=== PATIENT | female | born 1980 | race Caucasian/White ===

== ENCOUNTER 2023-04-26 08:29 | Outpatient (CLI) | payer OTHER, SELFPAY ==
--- NOTE | 2023-04-26 09:00 | CRLHL7_ITS ---
For Patients: As a result of the Century Cures Act, medical imaging exams and procedure reports are released immediately into your electronic medical record. You may view this report before your referring provider. If you have questions, please contact your health care provider. INDICATION: Salivary gland pain. COMPARISON: None. TECHNIQUE: CT soft tissue neck with IV contrast. Isovue 370, 95 cc. FINDINGS: Mild asymmetric enlargement of the right submandibular gland compared to the left (best appreciated on series 5, image 48). Associated subtle enhancement. No intraparotid mass. No intraglandular ductal dilatation. Normal accessory right parotid gland tissue adjacent to the master muscle. No obstructing sialolith. The left parotid gland. Normal bilateral submandibular glands. Normal thyroid gland. No enlarged cervical lymph nodes bilaterally. No supraclavicular superior mediastinal adenopathy. Nasopharynx and oropharynx are clear. No inflammation within the parapharyngeal fat pads or retropharyngeal space. Normal thickness of the epiglottis. Normal glottis with symmetric vocal cords. Lung apices are clear. Normal alignment the cervical spine. No prevertebral soft tissue swelling. Visualized paranasal sinuses and mastoid air cells are clear. IMPRESSION: 1. Mild asymmetric enlargement of the right submandibular gland compared to the left. Associated subtle enhancement. Overall, findings may represent early or mild changes of parotiditis. No intra parotid mass. No obstructing sialolith 2. No adenopathy. 3. Normal deep soft tissues of the neck. 4. No prevertebral soft tissue swelling Please note that all CT scans at this facility use dose modulation, iterative reconstruction, and/or weight-based dosing when appropriate to reduce radiation dose to as low as reasonably achievable. Dictated by Kamari Alejandra MD @ 04/26/2023 3:43:32 PM (Electronically Signed)
== END 2023-04-26 08:30 | disposition home or self-care (01) ==
PROVIDERS: PCP Physician Assistant Medical; Visit Provider Otolaryngology
DX: K11.8 Other diseases of salivary glands (principal)
CPT/HCPCS: 70491; Q9967